=== PATIENT | female | born 1940 | race Caucasian/White ===

== ENCOUNTER 2017-08-31 23:57 | Emergency (ER) | payer MEDICARE, OTHER ==
[~2017-08-31] VITALS: Ht 160 cm; Wt 81.6 kg
[~2017-08-31 23:57] MED LIST: AMLO10TA2 PO; BIOT300T2 PO; CALC3.7S2 NS; HYDR-3652 PO
--- NOTE | 2017-09-01 00:11 | NUR ---
PT TO ER BED 7. PT BIB RA C/O HIGH B/P. 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 VSS/RESP EVEN UNLABORED/NAD NOTED/SKIN WARM AND DRY/DENIES N-V-D/AOX4. AWAITING MD LOWRY.
[2017-09-01 01:00] VITALS: BP 155/76
== END 2017-09-01 01:01 | disposition home or self-care (01) ==
LOC: ER 23:59
DX: I10 Essential (primary) hypertension (principal); F41.9 Anxiety disorder, unspecified
CPT/HCPCS: 99284; A4606; Z7610

== ENCOUNTER 2017-09-06 22:28 | Emergency (ER) | payer MEDICARE, OTHER ==
[~2017-09-06] VITALS: Ht 157.5 cm; Wt 68.9 kg
--- NOTE | 2017-09-06 22:40 | NUR ---
CALLED NAME IN THE WAITING ROOM, NO ANSWER.
[2017-09-06] MEDS ORDERED: LORAZEPAM 1 MG TABLET PO ONE (23:30)
[2017-09-06] MEDS ORDERED: DILTIAZEM HCL 30 MG TABLET PO ONE (23:30)
[2017-09-06] MEDS ORDERED: DILTIAZEM HCL 30 MG TABLET ONE (23:32)
[2017-09-06] MEDS ORDERED: LORAZEPAM 1 MG TABLET ONE (23:32)
[2017-09-06 23:36] VITALS: BP 148/76
== END 2017-09-06 23:37 | disposition home or self-care (01) ==
LOC: ER 22:34
DX: R06.00 Dyspnea, unspecified (principal); I10 Essential (primary) hypertension; F41.9 Anxiety disorder, unspecified; Z95.0 Presence of cardiac pacemaker
CPT/HCPCS: 99284; A4606; Z7610

== ENCOUNTER 2019-04-03 13:30 | Inpatient (IN) | payer MEDICARE, MEDICAID ==
[~2019-04-03] VITALS: Ht 154.9 cm; Wt 71.2 kg
[~2019-04-03 13:30] MED LIST changes: -AMLO10TA2 PO; +AMLO10TA7 PO; -BIOT300T2 PO; +BIOT300T7 PO; -HYDR-3652 PO; +HYDR-3972 PO
--- NOTE | 2019-04-03 13:35 | NUR ---
[id number] FRM HOME C/O CHEST PAIN/SOB SINCE YESTERDAY. 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 ASPIRIN 162MG GIVEN PO SOFTWARE SECURITY CONSULTANT. AOX4, AMBULATORY WITH ASSISTANCE, VSS, SOME SHORTNESS OF BREATH, BUT GOOD O2 SAT ON RA. SPEAKS FARSI, GRANDDAUGTHER AT BEDSIDE TO TRANSLATE. ON MONITOR AND READY FOR EVAL.
[2019-04-03 14:07] LABS: BASOPHILS # (AUTO) 0.1 /CMM (0.0-0.2); EOSINOPHILS % (AUTO) 1.3 % (0.0-6.0); HEMATOCRIT 36 % (33-45); HEMOGLOBIN 12.2 g/dL (11.5-14.8); LYMPHOCYTES % (AUTO) 18.1 % (20.0-44.0); MEAN CORPUSCULAR HGB CONC 34 g/dl (31.0-36.0); MEAN CORPUSCULAR VOLUME 85 fL (82-100); MONOCYTES # (AUTO) 0.4 /CMM (0.1-1.30); MONOCYTES % (AUTO) 7.3 % (2.0-12.0); NEUTROPHILS % (AUTO) 72.3 % (43.0-81.0); PLATELET COUNT (AUTO) 247 /CMM (150-450); RED BLOOD CELL COUNT(AUTO) 4.24 MIL/uL (4.0-5.2); WHITE BLOOD COUNT (AUTO) 5.5 K/uL (4.3-11.0)
[2019-04-03 14:26] LABS: CALCIUM, SERUM 8.7 mg/dL (8.5-10.1); CARBON DIOXIDE 28 mmol/L (21-32); CHLORIDE 103 mmol/L (98-107); CREATININE 1.1 mg/dL (0.6-1.3); GLUCOSE 129 mg/dL (74-106); POTASSIUM 3.3 mmol/L (3.5-5.1); SODIUM SERUM 140 mmol/L (136-145); UREA NITROGEN, BLOOD 18 mg/dL (7-18)
[2019-04-03 14:38] LABS: ALANINE AMINOTRANSFERASE 17 U/L (12-78); ALBUMIN 3.4 g/dL (3.4-5.0); ALKALINE PHOSPHATASE 46 U/L (46-116); ASPARTATE AMINOTRANSFERASE 16 U/L (15-37); B-TYPE NATRIURETIC PEPTIDE 341 PG/ML (0-125); BILIRUBIN,DIRECT 0.1 mg/dL (0.0-0.2); BILIRUBIN,TOTAL 0.3 mg/dL (0.2-1.0); TOTAL PROTEIN, SERUM 6.4 g/dL (6.4-8.2)
--- NOTE | 2019-04-03 14:51 | NUR ---
CALLED FOR TELE BED, TURNED IN MOVE SHEET
[2019-04-03] MEDS ORDERED: POTASSIUM CHLORIDE 20 MEQ TAB.PRT.SR PO ONE ×2 (15:00→16:00)
--- NOTE | 2019-04-03 15:16 | NUR ---
PT RESTING COMFORTABLY IN BED. DAUGHTER AT BEDSIDE. BREATHING NORMALLY WITH NO COMPLAINTS AT THIS TIME. WILL CONT TO MONITOR.
--- NOTE | 2019-04-03 15:18 | NUR ---
PAGED DR NICHOLSON
[2019-04-03] MEDS ORDERED: MELA3TAB70 PO (15:31)
[2019-04-03] MEDS ORDERED: DILT240C2 PO (15:31)
[2019-04-03] MEDS ORDERED: ALBU18HF2 IH (15:31)
[2019-04-03] MEDS ORDERED: LACT1TAB25 PO (15:31)
[2019-04-03] MEDS ORDERED: ESCI10TA PO (15:31)
[2019-04-03] MEDS ORDERED: FLUT16SP NS (15:31)
[2019-04-03] MEDS ORDERED: TRAV5DRO OP (15:31)
[2019-04-03] MEDS ORDERED: NITR0.4T SL (15:51)
[2019-04-03] MEDS ORDERED: HYDR453.3 TP (15:51)
[2019-04-03] MEDS ORDERED: DICL100G16 TP (15:51)
[2019-04-03] MEDS ORDERED: ALPR0.5T PO (15:51)
[2019-04-03] MEDS ORDERED: ICOS1CAP PO (15:51)
[2019-04-03] MEDS ORDERED: CLOP75TA15 PO (15:51)
--- NOTE | 2019-04-03 16:07 | NUR ---
CAN CONTACT DAUGHTER, CALEB, WITH UPDATES: [phone]
--- NOTE | 2019-04-03 17:15 | NUR ---
PT RESTING COMFORTABLY. WAITING TO BE ADMITTED. WILL CONT TO MONITOR.
--- NOTE | 2019-04-03 20:07 | NUR ---
GOING TO BED 107
--- NOTE | 2019-04-03 20:22 | NUR ---
REPORT GIVEN TO STACI WILLS FOR 107 TELE
[2019-04-03 20:48] VITALS: BP 146/88
--- NOTE | 2019-04-03 20:48 | NUR ---
TELE/RN NOTES 78 YEARS OLD FEMALE PATIENT ADMITTED TO TELE UNIT WITH THE DX OF ACUTE CHEST PAIN. PATIENT NOTED WITH NO S/S OF ACUTE DISTRESS, RESPIRATION EVEN AND UNLABORED. NO SOB NOTED. PATIENT ALERT AND ORIENTED X4, FARSI SPEAKING, DAUGHTER AT THE BED SIDE. PATIENT DENIES ANY PAIN OR DISCOMFORT AT THIS TIME, DENIES ANY SOB. IV SITE ON RAC, HEP LOCK NOTED WITH NO S/S OF INFECTION, FLUSHED WITH NS. PATIENT ON TELE MONITORING SR WITH PVC'S RATE AT 80'S. HOB KEPT ELEVATED. SAFETY MAINTAINED, BED AT THE LOWEST POSITION, LOCKED. CALL LIGHT WITHIN REACH. WILL CONTINUE TO MONITOR PATIENT PER PLAN OF CARE.
--- NOTE | 2019-04-03 20:50 | NUR ---
[facility]
[2019-04-03] MEDS ORDERED: CARVEDILOL 6.25 MG TABLET PO SCH (21:00)
[2019-04-03] MEDS ORDERED: NITROGLYCERIN 0.4 MG/TAB BOTTLE SL PRN ×2 (21:00→22:30)
[2019-04-03] MEDS ORDERED: MORPHINE SULFATE INJ 2 MG/ML DISP.SYRIN IV PRN (21:00)
[2019-04-03] MEDS ORDERED: ONDANSETRON HCL/PF 4 MG/2 ML VIAL IVP PRN (21:00)
[2019-04-03] MEDS ORDERED: ACETAMINOPHEN 325 MG TABLET PO PRN (21:00)
--- NOTE | 2019-04-03 23:35 | NUR ---
PATIENT NOTED WITH EPISODES OF BRADYCARDIA, HR RATE DROPS TO 38-40 AND COME BACK UP TO NORMAL RANGE SR WITH INVERTED T WAVES. CALLED DR JAROD FELDMAN AT THIS TIME VIA Inverted Edge LINE WAITING FOR RESPONSE
--- NOTE | 2019-04-03 23:40 | NUR ---
DR JAROD FELDMAN CALLED BACK AT THIS TIME, RELAYED PATIENT CONDITION, AND ALSO RELAYED THAT PATIENT HAS PACEMAKER. PATIENT IS ASYMPTOMATIC AT THIS TIME. DR PATHAK CONTINUE TO MONITOR PATIENT, WILL INVESTIGATE PACEMAKER IN AM. WILL CONTINUE TO MONITOR PATIENT
[2019-04-03] MEDS: ALPRAZOLAM 0.5 MG TABLET PO SCH (23:56)
[2019-04-04] VITALS: BP 102/72
[2019-04-04] MEDS ORDERED: ALBUTEROL FS 2.5 MG/0.5 ML VIAL.NEB NEB PRN (01:30)
[2019-04-04 04:00] VITALS: BP 124/67
[2019-04-04 06:20] LABS: CHOLESTEROL 193 mg/dL (<200); HDL CHOLESTEROL 40 mg/dL (40-60); LDL 130 mg/dL (0-99); TRIGLYCERIDES 87 mg/dL (30-150)
[2019-04-04 06:25] LABS: BASOPHILS % (AUTO) 0.4 % (0.0-2.0); HEMATOCRIT 37 % (33-45); HEMOGLOBIN 12.4 g/dL (11.5-14.8); LYMPHOCYTES # (AUTO) 1.3 /CMM (0.8-4.8); LYMPHOCYTES % (AUTO) 23.9 % (20.0-44.0); MEAN CORPUSCULAR HGB CONC 34 g/dl (31.0-36.0); MEAN CORPUSCULAR VOLUME 85 fL (82-100); MONOCYTES # (AUTO) 0.4 /CMM (0.1-1.30); MONOCYTES % (AUTO) 8.2 % (2.0-12.0); NEUTROPHILS # (AUTO) 3.6 /CMM (1.8-8.9); NEUTROPHILS % (AUTO) 65.5 % (43.0-81.0); PLATELET COUNT (AUTO) 245 /CMM (150-450); RED BLOOD CELL COUNT(AUTO) 4.33 MIL/uL (4.0-5.2); WHITE BLOOD COUNT (AUTO) 5.5 K/uL (4.3-11.0)
[2019-04-04 06:47] LABS: CALCIUM, SERUM 8.5 mg/dL (8.5-10.1); CARBON DIOXIDE 28 mmol/L (21-32); CHLORIDE 107 mmol/L (98-107); CREATININE 0.8 mg/dL (0.6-1.3); GLUCOSE 86 mg/dL (74-106); MAGNESIUM 2.1 mg/dL (1.8-2.4); POTASSIUM 3.7 mmol/L (3.5-5.1); SODIUM SERUM 142 mmol/L (136-145); UREA NITROGEN, BLOOD 17 mg/dL (7-18)
[2019-04-04 08:00] VITALS: BP 122/73
[2019-04-04] MEDS ORDERED: ALPRAZOLAM 0.5 MG TABLET PO SCH (09:00)
[2019-04-04] MEDS: HYDROCORTISONE 2.5% CREAM 28.4 GM TUBE TP SCH (09:49)
[2019-04-04] MEDS: ASPIRIN 81 MG TAB.CHEW PO SCH (09:49)
[2019-04-04] MEDS: DILTIAZEM HCL CD 240 MG PO SCH (09:50)
[2019-04-04] MEDS: ESCITALOPRAM OXALATE (10 MG) 10 MG TABLET PO SCH (09:51)
[2019-04-04] MEDS: CLOPIDOGREL BISULFATE 75 MG TABLET PO SCH (09:51)
[2019-04-04] MEDS: ATORVASTATIN 40 MG TABLET PO SCH (09:53)
[2019-04-04 12:00] VITALS: BP 137/58
[2019-04-04] MEDS ORDERED: IOHEXOL-350 100 ML VIAL IV ONE ×2 (13:25→14:19)
[2019-04-04] MEDS ORDERED: METOPROLOL TARTRATE INJ 5 MG/5 ML AMPUL ONE (13:25)
[2019-04-04] MEDS ORDERED: CT SWABBABLE VALVE TRANS SET 1 EA INFUS.SET MC ONE (13:25)
[2019-04-04] MEDS ORDERED: IV NS 0.9% 250 ML IV ONE (13:26)
[2019-04-04] MEDS ORDERED: NITROGLYCERIN 0.4 MG/TAB BOTTLE ONE (14:05)
--- NOTE | 2019-04-04 15:03 | NUR ---
chief telephone operator notes pt brought back to room from cta. vs stable. family at bedside.
[2019-04-04 16:00] VITALS: BP 136/68
--- NOTE | 2019-04-04 18:30 | NUR ---
television announcer notes pt's family spoke to dr walden, requesting overnight stay to monitor for episodes of bradycardia. per , ok to stay for one night. will cont to monitor pt.
--- NOTE | 2019-04-04 18:43 | NUR ---
telegraph dispatcher notes pt stable. family at bedside. desk monitor reported one episode of bradycardia today. lasting a few seconds, hr in 40's. reported to dr walden. [employer] interrogated pacemaker, found well functioning ppm. ctca results reported to dr valdez. no new orders received. pt sr on monitor. on room air. bed in locked and low position. call light in reach. will endorse to pm nurse for [place].
--- NOTE | 2019-04-04 19:10 | NUR ---
COAT BASTER NOTE PATIENT IN BED A/OX 4. PATIENT DENIES CHEST PAIN SOB AT THIS TIME. NO S/S OF DISTRESS. POC DISCUSSED WITH PATIENT. PATIENT VERBALIZES UNDERSTANDING. PATIENT AWARE OF POSSIBLE D/C IN AM IF HR REMAINS WNL NO EPISODES OF TOVA. PATIENT HR 75 ON THE MONITOR. 18 G SL PATENT AND INTACT. RN WILL CONTINUE TO MONITOR FOR CHANGES. SAFETY PRECAUTIONS IN PLACE.
--- NOTE | 2019-04-04 19:25 | NUR ---
Met with patient,spouse and daughter at bedside. Patient speaks Farsi and some Ivorian. She is alert and pleasant. She lives locally with her spouse and daughter on the first floor apartment. She has adequate DME: walker, shower chair and commode but does not use them. She is ambulatory and receives assistance with ADL'S. She has IHSS and currently on service with homehealth but patient does not remember the name of the company. Family will bring the [facility] info in am. Her pcp is in [place] [phone]. Patient plan to return home once discharge. Addendum: 04/04/19 at 1925 by HERBERT ROSS RN Amended: Links added.
[2019-04-04 20:00] VITALS: BP 140/67
[2019-04-04] MEDS: CARVEDILOL 6.25 MG TABLET PO SCH (21:16)
[2019-04-04] MEDS: ALPRAZOLAM 0.5 MG TABLET PO SCH (21:16)
[2019-04-04] MEDS ORDERED: TRAVOPROST (BENZALKONIUM) 2.5 ML BOTTLE EACHEYE SCH (22:00)
[2019-04-04] MEDS ORDERED: LATANOPROST EYE DROP 0.005% 2.5 ML BOTTLE EACHEYE SCH (22:00)
[2019-04-05] VITALS: BP 147/61
[2019-04-05 04:00] VITALS: BP 132/64
--- NOTE | 2019-04-05 06:48 | NUR ---
VEHICLE DAMAGE APPRAISER NOTE 1 EPISODE OF TOVA CARDIA APPEARED FOR A VERY SHORT PERIOD OF TIME LESS THAN 2 SECONDS. WILL ENDORSE POC TO AM FOR MICHAEL. PATIENT STABLE NO S/S OF DISTRESS. PATIENT 78 ON THE MONITOR. SAFETY PRECAUTIONS IN PLACE.
--- NOTE | 2019-04-05 07:25 | NUR ---
TELE/RN OPENING NOTES RECEIVED PATIENT IN BED AWAKE AND ABLE TO MAKE NEEDS KNOWN. ALERT AND ORIENTED X4. NO PAIN OR ACUTE DISTRESS AT THIS TIME. PATIENT DENIES CHEST PAIN SOB AT THIS TIME. RESPIRATION EVEN AND UNLABORED. SKIN IS DRY WARM TO TOUCH. PATIENT WITH HR OF 85 ON THE MONITOR. 18G SL ON RIGHT AC PATENT AND INTACT. FLUSHING WELL. ALL NEEDS ANTICIPATED. KEPT CLEAN AND DRY. CALL LIGHT WITHIN REACHED. SAFETY MAINTAINED. BED LOCKED AND IN LOWEST POSITION. WILL CONTINUE TO MONITOR CLOSELY.
[2019-04-05 08:00] VITALS: BP 135/69
[2019-04-05] MEDS: ASPIRIN 81 MG TAB.CHEW PO SCH (08:39)
[2019-04-05] MEDS: DILTIAZEM HCL CD 240 MG PO SCH (08:39)
[2019-04-05] MEDS: CLOPIDOGREL BISULFATE 75 MG TABLET PO SCH (08:40)
[2019-04-05] MEDS: ATORVASTATIN 40 MG TABLET PO SCH (08:40)
[2019-04-05] MEDS: CARVEDILOL 6.25 MG TABLET PO SCH (08:40)
[2019-04-05] MEDS: ESCITALOPRAM OXALATE (10 MG) 10 MG TABLET PO SCH (08:40)
[2019-04-05] MEDS: HYDROCORTISONE 2.5% CREAM 28.4 GM TUBE TP SCH (08:42)
[2019-04-05 09:00] VITALS: BP 135/69
[2019-04-05] MEDS ORDERED: CARVEDILOL 12.5 MG TABLET PO SCH (09:00)
--- NOTE | 2019-04-05 09:00 | NUR ---
MS/RN NOTES PATIENT ALREADY TOOK COREG IN AM. INSTRUCTED PATIENT TO START NEW PRESCRIPTION DOSE OF COREG TOMORROW AM. PATIENT REMAINS IN STABLE CONDITION. WILL CONTINUE TO MONITOR.
--- NOTE | 2019-04-05 10:20 | NUR ---
MS/MANAGER TRANSFUSION NOTES PATIENT'S SON ARRIVED AT THE UNIT. DISCHARGE PAPERS ALONG WITH NEW PRESCRIPTION WAS SIGNED AND GIVEN. DISCHARGE TEACHING WAS PROVIDED WELL. PATIENT WAS ABLE TO UNDERSTAND. PATIENT BELONGINGS WAS GIVEN AND SIGNED WELL. PATIENT WAS ABLE TO AMBULATE AND WAS ACCOMPANIED TO THE EXIT OF THE UNIT. PATIENT LEFT THE UNIT IN STABLE CONDITION.
== END 2019-04-05 10:25 | disposition home or self-care (01) | DRG 206 ==
LOC: ER 13:30 → TELE1 20:32 → MEDSG1 04-05 08:15
PROVIDERS: ADMIT Internal Medicine; ATTEND Internal Medicine
DX: M94.0 Chondrocostal junction syndrome [Tietze] (principal); I47.1 Supraventricular tachycardia; I25.10 Atherosclerotic heart disease of native coronary artery without angina pectoris; I10 Essential (primary) hypertension; E78.5 Hyperlipidemia, unspecified; Z95.5 Presence of coronary angioplasty implant and graft; Z95.0 Presence of cardiac pacemaker; Z96.653 Presence of artificial knee joint, bilateral
CPT/HCPCS: 36415; 71045-TC; 75574; 80048-TC; 80061-TC; 80076-TC; 83735-TC; 83880; 84100-TC; 84443-TC; 84484-TC; 85025-TC; 85730-TC; 87081-TC; 93307-TC; G0378; J3490; J7050; Q9967

== ENCOUNTER 2025-06-01 13:12 | Emergency (ER) | payer MEDICARE, OTHER ==
[~2025-06-01] VITALS: Ht 152.4 cm; Wt 66.7 kg
[~2025-06-01 13:12] MED LIST changes: +ALBU18HF2 IH; +ALPR0.5T PO; -AMLO10TA7 PO; -BIOT300T7 PO; -CALC3.7S2 NS; +CLOP75TA15 PO; +DICL100G16 TP; +DILT-4 PO; +ESCI10TA PO; -HYDR-3972 PO; +HYDR453.3 TP; +ICOS1CAP PO; +LACT1TAB25 PO; +MELA3TAB70 PO; +NITR0.4T SL; +TRAV5DRO11 OP
[2025-06-01 13:54] LABS: PLATELET COUNT (AUTO) 214 K/uL (150-450); RED BLOOD CELL COUNT(AUTO) 4.28 MIL/uL (4.0-5.2); RED CELL DISTRIBUTION WIDTH 15.0 % (11.5-15.0); WHITE BLOOD COUNT (AUTO) 6.9 K/uL (4.3-11.0)
[2025-06-01 14:03] LABS: CALCIUM, SERUM 8.6 mg/dL (8.5-10.1); CREATININE 0.8 mg/dL (0.6-1.3); SODIUM SERUM 138 mmol/L (136-145); UREA NITROGEN, BLOOD 17 mg/dL (7-18)
[2025-06-01] MEDS ORDERED: hydrALAZINE HCL IV 20 MG VIAL ONE (14:21)
[2025-06-01] MEDS: hydrALAZINE HCL IV 20 MG VIAL IV ONE (14:25)
[2025-06-01 14:58] LABS: APPEARANCE,URINE CLEAR (CLEAR); BLOOD, URINE TRACE-INTA Ery/uL (NEGATIVE); LEUKOCYTE ESTERASE ,URINE NEGATIVE (NEGATIVE); NITRITE, URINE NEGATIVE (NEGATIVE); UGLUCOSE NEGATIVE (NEGATIVE)
[2025-06-01 15:03] LABS: ADD URINE CULTURE NO
[2025-06-01 15:04] LABS: SQUAMOUS EPITHELIAL CELL,UR Rare /HPF (None Seen)
[2025-06-01] MEDS ORDERED: ONDA4TAB5 PO (15:10)
[2025-06-01 15:31] VITALS: BP 178/86; TEMP 98.1; O2SAT 99
== END 2025-06-01 15:15 | disposition home or self-care (01) ==
LOC: ER 13:15
DX: I10 Essential (primary) hypertension (principal); R31.9 Hematuria, unspecified; R11.2 Nausea with vomiting, unspecified; R07.9 Chest pain, unspecified; Z79.02 Long term (current) use of antithrombotics/antiplatelets; Z79.1 Long term (current) use of non-steroidal anti-inflammatories (NSAID); Z79.899 Other long term (current) drug therapy; Z95.0 Presence of cardiac pacemaker; Z96.653 Presence of artificial knee joint, bilateral
CPT/HCPCS: 99285; 96374; 71045; 93005; 85025; 80048; 81001; 36415; 84484; J0360